=== PATIENT | male | born 1960 | race Caucasian/White ===

== ENCOUNTER → 2017-02-13 | Outpatient (CLI) | payer OTHER, BC ==
--- NOTE | 2017-02-13 16:38 | RAD ---
Examination: 3 views of the left knee History: History of left knee pain for one month Comparison: None available Findings The alignment of the knee joint grossly appears unremarkable. There is no acute fracture or dislocation identified. Impression: No acute osseous findings.
== END | disposition home or self-care (01) ==
LOC: DXRADRC 15:48
PROVIDERS: ATTEND Physician Assistant
DX: M25.562 Pain in left knee (principal)
CPT/HCPCS: 73562

== ENCOUNTER → 2018-03-13 | Outpatient (CLI) | payer OTHER, BC ==
[2018-03-13 09:10] LABS: BASO % 1 % (0-3); EOS # 0.1 x10^3/uL (0.0-0.7); EOS % 2 % (0-3); HEMATOCRIT 49.6 % (39.0-53.0); HEMOGLOBIN 16.8 g/dL (13.0-17.5); LYMPH # 2.9 x10^3/uL (1.0-4.8); LYMPH % 40 % (24-48); MEAN CORPUSCULAR HEMOGLOBIN 30 pg (25-35); MEAN CORPUSCULAR HGB CONC 34 g/dL (31-37); MEAN CORPUSCULAR VOLUME 90 fL (79-100); MONO # 0.7 x10^3/uL (0.0-1.1); MONO % 10 % (0-9); NEUT # 3.5 x10^3uL (1.8-7.7); NEUT % 48 % (31-73); PLATELET COUNT 257 x10^3/uL (140-400); RED BLOOD COUNT 5.52 x10^6/uL (4.30-5.70); RED CELL DISTRIBUTION WIDTH 14.3 % (11.5-14.5); WHITE BLOOD COUNT 7.3 x10^3/uL (4.0-11.0)
[2018-03-13 09:13] LABS: ALBUMIN 4.1 g/dL (3.4-5.0); ALBUMIN/GLOBULIN RATIO 1.2 (1.0-1.7); CALCIUM 8.9 mg/dL (8.5-10.1); GFR 76.7; POTASSIUM 4.4 mmol/L (3.5-5.1); TOTAL BILIRUBIN 0.3 mg/dL (0.2-1.0); TOTAL PROTEIN 7.4 g/dL (6.4-8.2)
[2018-03-13 12:23] LABS: FREE T4 1.01 ng/dL (0.76-1.46); THYROID STIM HORMONE (TSH) 3.859 uIU/mL (0.358-3.740)
== END | disposition home or self-care (01) ==
LOC: PMG 08:07
PROVIDERS: ATTEND Physician Assistant
DX: Z12.5 Encounter for screening for malignant neoplasm of prostate (principal); E78.00 Pure hypercholesterolemia, unspecified; R79.89 Other specified abnormal findings of blood chemistry
CPT/HCPCS: 36415; 80053; 80061; 84439; 84443; 85025; G0103

== ENCOUNTER 2019-03-13 19:29 | Emergency (ER) | payer OTHER, BC ==
[~2019-03-13] VITALS: Ht 180.3 cm; Wt 115.7 kg
--- NOTE | 2019-03-13 19:51 | ED.ADGEN ---
Past History Past Medical History: High Cholesterol, Kidney Stones Past Surgical History: Tonsillectomy Alcohol Use: None Drug Use: None Adult General Chief Complaint Chief Complaint ".. I had just finished dinner.. and.. I got this stabbing.. severe pain in .. in my Rt. flanks.. so bad .. it made me sweat... now it better..." HPI HPI Patient is a 58 year old male who presents with above hx and Rt flank abdomen pain. Severe stabbing pain radiation to Rt. groin. No history of trauma. No history of bad food. No history of travel. No history kidney stones. No history of irritable bowel or colitis or ulcers. Patient normally healthy. No history of specific ill contacts. Patient relates pale resolved by time of arrival to the emergency department however while in the emergency department pain returned in right flank and rates it as severe. No family hx of kidney stones. Review of Systems Review of Systems Constitutional: Denies fever or chills [] Eyes: Denies change in visual acuity, redness, or eye pain [] HENT: Denies nasal congestion or sore throat [] Respiratory: Denies cough or shortness of breath [] Cardiovascular: No additional information not addressed in HPI [] GI: Complains of right flank and abdominal pain, nausea, vomiting, . Denies bloody stools or diarrhea [] : Complaints of hematuria [] Musculoskeletal: Right flank back pain or joint pain [] Integument: Denies rash or skin lesions [] Neurologic: Denies headache, focal weakness or sensory changes [] Endocrine: Denies polyuria or polydipsia [] All other systems were reviewed and found to be within normal limits, except as documented in this note. Family History Family History Noncontributory Current Medications Current Medications Current Medications Medications (Trade) Dose Ordered Sig/Devika Start Time Stop Time Status Last Admin Dose Admin Famotidine (Pepcid Vial) 20 mg 1X ONCE 03/13/19 20:15 03/13/19 20:16 DC 03/13/19 20:30 20 MG Ketorolac Tromethamine (Toradol 30mg Vial) 30 mg 1X ONCE 03/13/19 20:45 03/13/19 20:45 DC Lactated Ringer's 1,000 ml @ 1,000 mls/hr Q1H 03/13/19 20:05 03/13/19 21:04 DC 03/13/19 20:29 1,000 MLS/HR Morphine Sulfate (Morphine 10mg Syringe) 10 mg 1X ONCE 03/13/19 20:45 03/13/19 20:46 DC 03/13/19 20:47 10 MG Ondansetron HCl (Zofran) 8 mg 1X ONCE 03/13/19 20:15 03/13/19 20:16 DC 03/13/19 20:29 8 MG Allergies Allergies Allergies Coded Allergies Type Severity Reaction Last Updated Verified No Known Drug Allergies 03/13/19 No Physical Exam Physical Exam Constitutional: Well developed, well nourished, in acute distress, non-toxic appearance. [] HENT: Normocephalic, atraumatic, bilateral external ears normal, oropharynx moist, no oral exudates, nose normal. [] Eyes: PERRLA, EOMI, conjunctiva normal, no discharge. [] Neck: Normal range of motion, no tenderness, supple, no stridor. [] Cardiovascular:Heart rate regular rhythm, no murmur [] Lungs & Thorax: Bilateral breath sounds clear to auscultation [] Abdomen: Bowel sounds creased, soft, right flank tenderness, no masses, no pulsatile masses. [] Skin: Warm, dry, no erythema, no rash. [] Back: No tenderness, right CVA tenderness. [] Extremities: No tenderness, no cyanosis, no clubbing, ROM intact, no edema. [] Neurologic: Alert and oriented X 3, normal motor function, normal sensory function, no focal deficits noted. [] Psychologic: Affect normal, judgement normal, mood normal. [] Current Patient Data Vital Signs Vital Signs Date Time Temp Pulse Resp B/P (MAP) Pulse Ox O2 Delivery O2 Flow Rate FiO2 03/13/19 23:21 73 18 129/83 (98) 92 Room Air 03/13/19 19:43 97.5 Lab Results Laboratory Tests Test 03/13/19 20:00 03/13/19 20:30 White Blood Count 8.2 x10^3/uL (4.0-11.0) Red Blood Count 5.61 x10^6/uL (4.30-5.70) Hemoglobin 16.0 g/dL (13.0-17.5) Hematocrit 48.0 % (39.0-53.0) Mean Corpuscular Volume 86 fL (79-100) Mean Corpuscular Hemoglobin 29 pg (25-35) Mean Corpuscular Hemoglobin Concent 33 g/dL (31-37) Red Cell Distribution Width 15.5 % (11.5-14.5) H Platelet Count 251 x10^3/uL (140-400) Neutrophils (%) (Auto) 50 % (31-73) Lymphocytes (%) (Auto) 39 % (24-48) Monocytes (%) (Auto) 8 % (0-9) Eosinophils (%) (Auto) 2 % (0-3) Basophils (%) (Auto) 1 % (0-3) Neutrophils # (Auto) 4.1 x10^3uL (1.8-7.7) Lymphocytes # (Auto) 3.2 x10^3/uL (1.0-4.8) Monocytes # (Auto) 0.7 x10^3/uL (0.0-1.1) Eosinophils # (Auto) 0.2 x10^3/uL (0.0-0.7) Basophils # (Auto) 0.0 x10^3/uL (0.0-0.2) Prothrombin Time 10.7 SEC (9.4-11.4) Prothrombin Time INR 1.1 (0.9-1.1) PTT 26 SEC (23-33) Sodium Level 141 mmol/L (136-145) Potassium Level 3.6 mmol/L (3.5-5.1) Chloride Level 105 mmol/L (98-107) Carbon Dioxide Level 28 mmol/L (21-32) Anion Gap 8 (6-14) Blood Urea Nitrogen 22 mg/dL (8-26) Creatinine 1.2 mg/dL (0.7-1.3) Estimated GFR (Cockcroft-Gault) 62.0 Glucose Level 147 mg/dL (70-99) H Calcium Level 9.1 mg/dL (8.5-10.1) Total Bilirubin 0.3 mg/dL (0.2-1.0) Direct Bilirubin 0.1 mg/dL (0.0-0.2) Aspartate Amino Transferase (AST) 21 U/L (15-37) Alanine Aminotransferase (ALT) 36 U/L (16-63) Alkaline Phosphatase 108 U/L (46-116) Creatine Kinase 95 U/L (39-308) Troponin I Quantitative < 0.017 ng/mL (0-0.055) Total Protein 7.2 g/dL (6.4-8.2) Albumin 3.9 g/dL (3.4-5.0) Amylase Level 68 U/L (25-115) Lipase 254 U/L (73-393) Urine Collection Type Unknown Urine Color Yellow Urine Clarity Hazy Urine pH 5.5 Urine Specific [place] >=1.030 Urine Protein Neg (NEG-TRACE) Urine Glucose (UA) Neg mg/dL (NEG) Urine Ketones (Stick) Neg mg/dL (NEG) Urine Blood Mod (NEG) Urine Nitrite Neg (NEG) Urine Bilirubin Neg (NEG) Urine Urobilinogen Dipstick 0.2 mg/dL (0.2 mg/dL) Urine Leukocyte Esterase Neg (NEG) Urine RBC Occ /HPF (0-2) Urine WBC 0 /HPF (0-4) Urine Squamous Epithelial Cells Occ /LPF Urine Amorphous Sediment Present /HPF Urine Bacteria Few /HPF (0-FEW) Urine Mucus Mod /LPF Urine Opiates Screen Neg (NEG) Urine Methadone Screen Neg (NEG) Urine Barbiturates Neg (NEG) Urine Phencyclidine Screen Neg (NEG) Urine Amphetamine/Methamphetamine Neg (NEG) Urine Benzodiazepines Screen Neg (NEG) Urine Cocaine Screen Neg (NEG) Urine Cannabinoids Screen Neg (NEG) Urine Ethyl Alcohol Neg (NEG) EKG EKG Interpretation EKG shows a sinus rhythm at 72 bpm. Left axis. Nonspecific contour changes. No findings acute STEMI with contralateral changes.[] Radiology/Procedures Radiology/Procedures Dilatation acute abdomen film shows nonspecific bowel gas pattern. Does have stool in colon. [][place] [address] IMAGING REPORT Signed PATIENT: ROSIE BREEN ACCOUNT: [id number] : 1960 LOCATION: ER AGE: 58 SEX: M EXAM STATUS: REG ER ORD. PHYSICIAN: ZULEIKA AGUILAR MD REASON: Right flank abdominal pain. No hx surgery or injury PROCEDURE: CT ABDOMEN PELVIS WO CONTRAST CT Abdomen and Pelvis without contrast History: Right flank abdominal pain Technique: Noncontrast CT imaging was performed of the abdomen and pelvis. Multiplanar images are reviewed. Exposure: One or more of the following individualized dose reduction techniques were utilized for this examination: 1. Automated exposure control 2. Adjustment of the mA and/or kV according to patient size 3. Use of iterative reconstruction technique. Comparison: None Findings: There is no pleural fluid of the visualized lung bases. No renal calculus is identified. There is very mild right hydroureter, apparently a punctate calculus in the distal right ureter image 136 series 2. There is no adrenal nodularity. Accurate evaluation of abdominal visceral organs is limited without intravenous contrast. There is no obvious focal abnormality of the pancreas or liver. There are splenic granulomas. Gallbladder is present without obvious intraluminal abnormality by CT. Evaluation of bowel is limited without oral contrast. There is no free air or significant free fluid. Segments of small bowel such as in the left abdomen are somewhat prominent in caliber up to 3.6 cm, difficult to exclude underlying wall thickening. Normal appendix is visualized. There is degenerative disc disease and spondylosis L5-S1. 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 There is [id number] right and mild left L5-S1 neural foramina compromise, mild narrowing bilaterally at L4-5. There is degenerative disc disease greatest at L4-5 and L5-S1. IMPRESSION: 1. There is a punctate calculus in the distal right ureter in the pelvis, very mild right hydroureter. 2. Segments of small bowel in the abdomen are somewhat dilated with possible wall thickening as could be seen with enteritis, difficult to exclude partial obstruction by this exam. 3. There is no CT evidence of acute appendicitis. 4. 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 Electronically signed by: Sander Landin MD (03/13/2019 10:34 PM) [facility] Course & Med Decision Making Course & Med Decision Making Pertinent Labs and Imaging studies reviewed. (See chart for details). Clear fluid diet. Push fluids. Take Zofran 8 mg up 4 times a day for nausea and vomiting. May take Vicoprofen up 4 times a day for marked pain. Follow-up primary care. Follow-up urology. Safe stone if passed. Recheck glucose on fol low-up with primary. [] Final Impression Final Impression 1. Renal Colic[]- Distal Renal Stone 2. Patient glucose and 147 Dragon Disclaimer Dragon Disclaimer This electronic medical record was generated, in whole or in part, using a voice recognition dictation system. Discharge Summary Visit Information Final Diagnosis Problems Medical Problems: (1) Kidney stone Status: Acute (2) Pain in the abdomen Status: Acute Brief Hospital Course Allergies Allergies Coded Allergies Type Severity Reaction Last Updated Verified No Known Drug Allergies 03/13/19 No Vital Signs Vital Signs Date Time Temp Pulse Resp B/P (MAP) Pulse Ox O2 Delivery O2 Flow Rate FiO2 03/13/19 23:21 73 18 129/83 (98) 92 Room Air 03/13/19 19:43 97.5 Lab Results Laboratory Tests Test 03/13/19 20:00 03/13/19 20:30 White Blood Count 8.2 x10^3/uL (4.0-11.0) Red Blood Count 5.61 x10^6/uL (4.30-5.70) Hemoglobin 16.0 g/dL (13.0-17.5) Hematocrit 48.0 % (39.0-53.0) Mean Corpuscular Volume 86 fL (79-100) Mean Corpuscular Hemoglobin 29 pg (25-35) Mean Corpuscular Hemoglobin Concent 33 g/dL (31-37) Red Cell Distribution Width 15.5 % (11.5-14.5) Platelet Count 251 x10^3/uL (140-400) Neutrophils (%) (Auto) 50 % (31-73) Lymphocytes (%) (Auto) 39 % (24-48) Monocytes (%) (Auto) 8 % (0-9) Eosinophils (%) (Auto) 2 % (0-3) Basophils (%) (Auto) 1 % (0-3) Neutrophils # (Auto) 4.1 x10^3uL (1.8-7.7) Lymphocytes # (Auto) 3.2 x10^3/uL (1.0-4.8) Monocytes # (Auto) 0.7 x10^3/uL (0.0-1.1) Eosinophils # (Auto) 0.2 x10^3/uL (0.0-0.7) Basophils # (Auto) 0.0 x10^3/uL (0.0-0.2) Prothrombin Time 10.7 SEC (9.4-11.4) Prothromb Time International Ratio 1.1 (0.9-1.1) Activated Partial Thromboplast Time 26 SEC (23-33) Sodium Level 141 mmol/L (136-145) Potassium Level 3.6 mmol/L (3.5-5.1) Chloride Level 105 mmol/L (98-107) Carbon Dioxide Level 28 mmol/L (21-32) Anion Gap 8 (6-14) Blood Urea Nitrogen 22 mg/dL (8-26) Creatinine 1.2 mg/dL (0.7-1.3) Estimated GFR (Cockcroft-Gault) 62.0 Glucose Level 147 mg/dL (70-99) Calcium Level 9.1 mg/dL (8.5-10.1) Total Bilirubin 0.3 mg/dL (0.2-1.0) Direct Bilirubin 0.1 mg/dL (0.0-0.2) Aspartate Amino Transf (AST/SGOT) 21 U/L (15-37) Alanine Aminotransferase (ALT/SGPT) 36 U/L (16-63) Alkaline Phosphatase 108 U/L (46-116) Creatine Kinase 95 U/L (39-308) Troponin I Quantitative < 0.017 ng/mL (0-0.055) Total Protein 7.2 g/dL (6.4-8.2) Albumin 3.9 g/dL (3.4-5.0) Amylase Level 68 U/L (25-115) Lipase 254 U/L (73-393) Urine Collection Type Unknown Urine Color Yellow Urine Clarity Hazy Urine pH 5.5 Urine Specific [place] >=1.030 Urine Protein Neg (NEG-TRACE) Urine Glucose (UA) Neg mg/dL (NEG) Urine Ketones (Stick) Neg mg/dL (NEG) Urine Blood Mod (NEG) Urine Nitrite Neg (NEG) Urine Bilirubin Neg (NEG) Urine Urobilinogen Dipstick 0.2 mg/dL (0.2 mg/dL) Urine Leukocyte Esterase Neg (NEG) Urine RBC Occ /HPF (0-2) Urine WBC 0 /HPF (0-4) Urine Squamous Epithelial Cells Occ /LPF Urine Amorphous Sediment Present /HPF Urine Bacteria Few /HPF (0-FEW) Urine Mucus Mod /LPF Urine Opiates Screen Neg (NEG) Urine Methadone Screen Neg (NEG) Urine Barbiturates Neg (NEG) Urine Phencyclidine Screen Neg (NEG) Urine Amphetamine/Methamphetamine Neg (NEG) Urine Benzodiazepines Screen Neg (NEG) Urine Cocaine Screen Neg (NEG) Urine Cannabinoids Screen Neg (NEG) Urine Ethyl Alcohol Neg (NEG) Brief Hospital Course Mr. Breen is a 58 old male who presented with Rt. distal kidney stone. Discharge Information Condition at Discharge: Improved, Stable Disposition/Orders: D/C to Home Dischare Medications Current Medications Lactated Ringer's 1,000 ml @ 1,000 mls/hr Q1H IV Last administered on 03/13/19at 20:29; Admin Dose 1,000 MLS/HR; Start 03/13/19 at 20:05; Stop 03/13/19 at 21:04; Status DC Ondansetron HCl (Zofran) 8 mg 1X ONCE IV Last administered on 03/13/19at 20:29; Admin Dose 8 MG; Start 03/13/19 at 20:15; Stop 03/13/19 at 20:16; Status DC Famotidine (Pepcid Vial) 20 mg 1X ONCE IVP Last administered on 03/13/19at 20:30; Admin Dose 20 MG; Start 03/13/19 at 20:15; Stop 03/13/19 at 20:16; Status DC Ketorolac Tromethamine (Toradol 30mg Vial) 30 mg STK-MED ONCE .ROUTE ; Start 03/13/19 at 20:32; Stop 03/13/19 at 20:33; Status DC Ketorolac Tromethamine (Toradol 30mg Vial) 30 mg 1X ONCE IV Last administered on 03/13/19at 20:43; Admin Dose 30 MG; Start 03/13/19 at 20:45; Stop 03/13/19 at 20:46; Status DC Ketorolac Tromethamine (Toradol 30mg Vial) 30 mg 1X ONCE IV ; Start 03/13/19 at 20:45; Stop 03/13/19 at 20:45; Status DC Morphine Sulfate (Morphine 10mg Syringe) 10 mg 1X ONCE SQ Last administered on 03/13/19at 20:47; Admin Dose 10 MG; Start 03/13/19 at 20:45; Stop 03/13/19 at 20:46; Status DC Active Scripts Active Zofran (Ondansetron Hcl) 8 Mg Tablet 8 Mg PO QIDPRN PRN Hydrocodone-Ibuprofen 7.5-200 (Hydrocodone/Ibuprofen) 1 Each Tablet 1 Tab PO PRN Q6HRS PRN Dragon Disclaimer This chart was dictated in whole or in part using Voice Recognition software in a busy, high-work load, and often noisy Emergency Department environment. It may contain unintended and wholly unrecognized errors or omissions. ZULEIKA AGUILAR MD Mar 13, 2019 19:51
[2019-03-13 20:21] LABS: BASO % 1 % (0-3); EOS # 0.2 x10^3/uL (0.0-0.7); EOS % 2 % (0-3); LYMPH # 3.2 x10^3/uL (1.0-4.8); LYMPH % 39 % (24-48); MEAN CORPUSCULAR HEMOGLOBIN 29 pg (25-35); MEAN CORPUSCULAR HGB CONC 33 g/dL (31-37); MEAN CORPUSCULAR VOLUME 86 fL (79-100); MONO # 0.7 x10^3/uL (0.0-1.1); MONO % 8 % (0-9); NEUT # 4.1 x10^3uL (1.8-7.7); NEUT % 50 % (31-73); PLATELET COUNT 251 x10^3/uL (140-400); RED BLOOD COUNT 5.61 x10^6/uL (4.30-5.70); RED CELL DISTRIBUTION WIDTH 15.5 % (11.5-14.5); WHITE BLOOD COUNT 8.2 x10^3/uL (4.0-11.0)
[2019-03-13] MEDS: IV RINGERS SOLUTION,LACTATED 1,000 ML IV SCH (20:29)
[2019-03-13] MEDS: ONDANSETRON PF 4 MG/2 ML VIAL. IV ONE (20:29)
[2019-03-13] MEDS: FAMOTIDINE 20 MG/2 ML VIAL IVP ONE (20:30)
[2019-03-13] MEDS ORDERED: KETOROLAC 30 MG/ML VIAL. ONE (20:32)
[2019-03-13 20:35] LABS: ALBUMIN 3.9 g/dL (3.4-5.0); CALCIUM 9.1 mg/dL (8.5-10.1); CREATININE 1.2 mg/dL (0.7-1.3); DIRECT BILIRUBIN 0.1 mg/dL (0.0-0.2); POTASSIUM 3.6 mmol/L (3.5-5.1); TOTAL BILIRUBIN 0.3 mg/dL (0.2-1.0); TOTAL PROTEIN 7.2 g/dL (6.4-8.2)
[2019-03-13] MEDS: KETOROLAC 30 MG/ML VIAL. IV ONE (20:43)
[2019-03-13] MEDS ORDERED: KETOROLAC 30 MG/ML VIAL. IV ONE (20:45)
[2019-03-13] MEDS: MORPHINE SULFATE 10 MG/ML SYRINGE. SQ ONE (20:47)
[2019-03-13 20:55] LABS: AMPHETAMINE/METHAMPHETAMINE NEG (NEG); BARBITURATES NEG (NEG); BENZODIAZEPINES NEG (NEG); CANNABINOIDS NEG (NEG); COCAINE NEG (NEG); METHADONE NEG (NEG); OPIATES NEG (NEG); PHENCYCLIDINE NEG (NEG)
[2019-03-13 20:58] LABS: BILIRUBIN,URINE NEG (NEG); CLARITY,URINE HAZY; COLOR,URINE YELLOW; GLUCOSE,URINE NEG (NEG)
[2019-03-13 20:59] LABS: AMORPHOUS SEDIMENT,UR PRESENT /HPF; BACTERIA,URINE FEW /HPF (0-FEW); NITRITE,URINE NEG (NEG); RBC,URINE OCC /HPF (0-2); SQUAMOUS EPITHELIAL CELL,UR OCC /LPF; UROBILINOGEN,URINE 0.2 mg/dL (0.2 mg/dL); WBC,URINE 0 /HPF (0-4)
--- NOTE | 2019-03-13 22:37 | RAD ---
CT Abdomen and Pelvis without contrast History: Right flank abdominal pain Technique: Noncontrast CT imaging was performed of the abdomen and pelvis. Multiplanar images are reviewed. Exposure: One or more of the following individualized dose reduction techniques were utilized for this examination: 1. Automated exposure control 2. Adjustment of the mA and/or kV according to patient size 3. Use of iterative reconstruction technique. Comparison: None Findings: There is no pleural fluid of the visualized lung bases. No renal calculus is identified. There is very mild right hydroureter, apparently a punctate calculus in the distal right ureter image 136 series 2. There is no adrenal nodularity. Accurate evaluation of abdominal visceral organs is limited without intravenous contrast. There is no obvious focal abnormality of the pancreas or liver. There are splenic granulomas. Gallbladder is present without obvious intraluminal abnormality by CT. Evaluation of bowel is limited without oral contrast. There is no free air or significant free fluid. Segments of small bowel such as in the left abdomen are somewhat prominent in caliber up to 3.6 cm, difficult to exclude underlying wall thickening. Normal appendix is visualized. There is degenerative disc disease and spondylosis L5-S1. 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 There is [id number] right and mild left L5-S1 neural foramina compromise, mild narrowing bilaterally at L4-5. There is degenerative disc disease greatest at L4-5 and L5-S1. IMPRESSION: 1. There is a punctate calculus in the distal right ureter in the pelvis, very mild right hydroureter. 2. Segments of small bowel in the abdomen are somewhat dilated with possible wall thickening as could be seen with enteritis, difficult to exclude partial obstruction by this exam. 3. There is no CT evidence of acute appendicitis. 4. 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 Electronically signed by: Sander Landin MD (03/13/2019 10:34 PM) [facility]
[2019-03-13] MEDS ORDERED: HYDR-1179 PO (23:08)
[2019-03-13] MEDS ORDERED: ONDA8TAB9 PO (23:08)
[2019-03-13 23:21] VITALS: BP 129/83
--- NOTE | 2019-03-14 11:11 | RAD ---
EXAM: Two view abdomen with one view chest HISTORY: Abdominal pain. COMPARISON: Today's CT. FINDINGS: A frontal view of the chest and supine/upright views of the abdomen are obtained. There are no confluent infiltrates. There is no pneumothorax or pleural effusion. The heart is not enlarged. There is no pneumoperitoneum. There are no distended small bowel loops or significant air-fluid levels. There is gas distally. A calcification projecting over the left renal shadow is vascular rather than a renal calculus on comparison with CT. A tiny right distal ureteral calculus noted on CT is not detectable by radiographs. There are [id number] degenerative changes of the lower lumbar spine. There is mildly to moderately decreased femoral head/neck offset on the right greater than left. IMPRESSION: 1. No confluent infiltrates. 2. No evidence of obstruction. Refer to today's CT for more information. Electronically signed by: Gamaliel Santos MD (03/14/2019 11:08 AM) [facility]
--- NOTE | 2019-03-16 06:50 | EKG ---
[address] [address] Test Date: 2019-03-13 Test Time: 19:53:04 Pat Name: ROSIE WOO Department: Room: Gender: M Rivet Sticker: RACHNA : 1960 Requested By: ZULEIKA AGUILAR Order Number: [id number] Reading MD: Measurements Intervals [place] Rate: 72 P: 36 AK: 192 QRS: -3 QRSD: 88 T: 50 QT: 366 QTc: 407 Interpretive Statements SINUS RHYTHM LEFTWARD AXIS QRS(T) CONTOUR ABNORMALITY CONSIDER ANTEROSEPTAL MYOCARDIAL DAMAGE POSSIBLY ABNORMAL ECG RI6.01 No previous ECG available for comparison
== END 2019-03-13 23:26 | disposition home or self-care (01) ==
LOC: ER 19:29
DX: N20.0 Calculus of kidney (principal); R11.2 Nausea with vomiting, unspecified; M43.06 Spondylolysis, lumbar region; N13.4 Hydroureter; E78.00 Pure hypercholesterolemia, unspecified; Z87.442 Personal history of urinary calculi
CPT/HCPCS: 36415; 74022; 74176; 80048; 80076; 80307; 81001; 82150; 82550; 83690; 84484; 85025; 85610; 85730; 93005; 96361; 96372; 96374; 96375; 99285; J1885; J2270; J2405; J3490; J7120

== ENCOUNTER → 2020-06-30 | Outpatient (CLI) | payer OTHER, BC ==
[~2020-06-30] MED LIST: HYDR-1179 PO; ONDA8TAB9 PO
--- NOTE | 2020-06-30 08:26 | RAD ---
EXAM: Carotid Doppler sonogram. HISTORY: Dizziness. Lightheadedness. Cigarette smoking history. Atherosclerosis. TECHNIQUE: Marsh scale and color Doppler sonographic evaluation of the neck with spectral waveform analysis was performed and static images are submitted for review. FINDINGS: There is mild sclerotic plaque within the carotid bulbs. The peak systolic velocity within the right common carotid artery is 78 cm/sec. The peak systolic velocity within the right internal carotid artery is 88 cm/sec and the end diastolic velocity within the right internal carotid artery is 32 cm/sec. The peak systolic velocity within the left common carotid artery is 109 cm/sec. The peak systolic velocity within the left internal carotid artery is 101 cm/sec and the end diastolic velocity within the left internal carotid artery is 34 cm/sec. There is normal antegrade flow within both vertebral arteries. IMPRESSION: No Doppler evidence of greater than 50 percent stenosis involving the internal carotid arteries. PQRS Compliance Statement - Stenosis calculations for CT, MR and conventional angiography are based upon measurement of the distal ICA diameter in accordance with the NASCET methodology. Stenosis calculations for carotid ultrasound studies are derived from validated velocity criteria which are known to correlate with the NASCET methodology. Electronically signed by: Kimberly Stewart MD (06/30/2020 8:23 AM) [email or web address]
== END | disposition home or self-care (01) ==
LOC: US 07:37
PROVIDERS: ATTEND Nurse Practitioner Adult Health
DX: I65.23 Occlusion and stenosis of bilateral carotid arteries (principal); R42 Dizziness and giddiness; Z87.891 Personal history of nicotine dependence
CPT/HCPCS: 93880